=== PATIENT | female | born 1965 ===

== ENCOUNTER 2020-04-03 15:06 | Outpatient (REF) | payer OTHER, SELFPAY ==
--- NOTE | 2020-04-03 14:45 | PAPFT_PTH ---
PATIENT: ALEJANDRA STALLWORTH LOC: [facility]#:[id number] AGE/SX: 54/F ROOM: RE04/03/[address]: Yanely Hanna : 1965 BED: DIS: 04/03/2020 SPEC #: [id number] RECD: 04/04/20 12:52 STATUS: KAYLEEN REQ #: [id number] BUDDY: 04/03/20 14:[address]: Yanely Hanna DEPT: [facility] Cytology RECD BY: Lauren Shaffer Tissues: 1 - CX/ENDOCX FOR PAP SMEARS Procedures: PAP THIN PREP/[facility] Screening HPV DNA PROBE Comments: [id number] ([facility])
== END 2020-04-03 15:26 ==
LOC: NCHCN 15:06
PROVIDERS: Visit Provider Physician Assistant
DX: Z12.4 Encounter for screening for malignant neoplasm of cervix (principal); Z01.419 Encounter for gynecological examination (general) (routine) without abnormal findings; Z11.51 Encounter for screening for human papillomavirus (HPV)
CPT/HCPCS: 88142; 87624

== ENCOUNTER 2020-04-22 08:43 | Outpatient (REF) | payer SELFPAY ==
[2020-04-22 20:40] LABS: ALT 27 U/L (14-59); AST 26 U/L (15-37); Alkaline Phosphatase 113 U/L (46-116); Anion Gap 8.6 mmol/L (3-11); BUN 17 mg/dL (7-18); Bilirubin, Total 0.3 mg/dL (0.2-1.0); CO2 29.4 mmol/L (21.0-32.0); Calcium 8.9 mg/dL (8.5-10.1); Calculated LDL 165 mg/dL (<100); Chloride 104 mmol/L (98-107); Cholesterol 236 mg/dL (<200); Glucose 102 mg/dL (74-106); HDL Cholesterol 51 mg/dL (40-60); Sodium 142 mmol/L (136-145); Total Protein 7.4 g/dL (6.4-8.2); Triglyceride 101 mg/dL (<150)
[2020-04-22 22:47] LABS: TSH (W/Ref FT4) 1.77 uIU/mL (0.36-3.74)
[2020-05-08 10:16] LABS: Prolactin 11.1 ng/mL
== END 2020-04-22 09:03 ==
LOC: NCHCN 08:43
PROVIDERS: Visit Provider Physician Assistant
DX: Z00.00 Encounter for general adult medical examination without abnormal findings (principal); Z13.1 Encounter for screening for diabetes mellitus; Z13.220 Encounter for screening for lipoid disorders; N64.3 Galactorrhea not associated with childbirth; O92.6 Galactorrhea; N20.0 Calculus of kidney; N36.9 Urethral disorder, unspecified; R31.0 Gross hematuria
CPT/HCPCS: 80053; 80061; 84146; 84443